=== PATIENT | male | born 1935 | race Caucasian/White ===

== ENCOUNTER 2022-05-23 07:25 | Inpatient (IN) ==
[2022-05-23] MEDS ORDERED: dexAMETHasone**PF** 10 MG/ML VIAL IV ONE (07:53)
[2022-05-23] MEDS ORDERED: SODIUM CHLORIDE 0.9% 1000ML 1,000 ML IV ONE (07:53)
[2022-05-23] MEDS ORDERED: ALBUT/IPRATROP 3MG/0.5MG NEB 3 ML VIAL NEB ONE (07:53)
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
[2022-05-23 08:48] LABS: Basophils # (auto) 0.03 K/uL (0-0.2); Basophils % (auto) 0.3 %; Eosinophils # (auto) 0.02 K/uL (0-0.50); Eosinophils % (auto) 0.2 %; Hematocrit (blood only) 38.2 % (40.1-51.0); Hemoglobin 13.3 g/dl (14.0-18.0); Immature Granulocytes # (auto) 0.06 K/uL (0.00-0.02); Immature Granulocytes % (auto) 0.6 %; Lymphocytes # (auto) 0.66 K/uL (1.2-3.4); Lymphocytes % (auto) 6.2 %; Mean Corpuscular Hemoglobin 32.4 pg (25.0-34.0); Mean Corpuscular Hgb Conc 34.8 g/dL (32.0-36.0); Mean Corpuscular Volume 93.2 fL (80.0-100.0); Mean Platelet Volume 9.5 fL (9.4-12.4); Monocytes # (auto) 0.77 K/uL (0.24-0.82); Monocytes % (auto) 7.2 %; Neutrophils # (auto) 9.19 K/uL (1.4-6.5); Neutrophils % (auto) 85.5 %; Platelet Count 235 K/uL (130-400); RDW Coefficient of Variation 12.9 % (11.5-14.5); RDW Standard Deviation 44.2 fL (36.4-46.3); White Blood Count 10.73 K/ul (4.8-10.8)
--- NOTE | 2022-05-23 08:54 | XRay Report ---
XR chest 1V portable HISTORY: Sepsis COMPARISON: Chest 04/26/2012. FINDINGS: Mild interstitial thickening again noted the lung bases. This is likely chronic. No new foc al lung consolidations to suggest a pneumonia. No evidence for pulmonary edema. The heart is normal i n size. The lungs are hyperexpanded with mild apical predominant emphysematous changes. IMPRESSION: No significant change compared to the prior study. No acute process. Emphysema again noted. ACT 112: Negative or not required by law. Electronically signed by: Joce Aparicio M.D. 05/23/2022 8:53 AM
[2022-05-23 09:12] LABS: BUN Creatinine Ratio 19.7 (10-20); Bilirubin,Total 0.6 mg/dl (0.2-1.0); Calcium 9.3 mg/dl (8.5-10.1); Creatinine Clr Calc Pharmacy 41.9 ml/min; Est GFR (African American) 59.7 ml/min; Est GFR (Non-African American) 51.5 ml/min; Magnesium 1.5 mg/dl (1.7-2.4); Potassium 3.4 mmol/L (3.5-5.1); Total Protein 6.9 gm/dl (6.0-8.3)
[2022-05-23 09:17] LABS: Troponin I High Sensitivity 8.5 pg/ml (0-20)
[2022-05-23 09:30] LABS: Influenza A virus by PCR Negative (Neg); Influenza B virus by PCR Negative (Neg); RSV by PCR Negative (Neg); SARS CoV2 RNA(COVID-19) Ceph NEGATIVE (Negative)
[2022-05-23] MEDS ORDERED: MAGNESIUM SULFATE / D5W 1 GM/100 ML BAG IV STA (10:23)
[2022-05-23] MEDS ORDERED: cefTRIAXone SODIUM 2,000 MG/70 ML BAG IV STA (10:23)
[2022-05-23] MEDS ORDERED: DOXYCYCLINE HYCLATE 100 MG in DEXTROSE 5% 100 ML IV STA (10:23)
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
[2022-05-23] MEDS: POTASSIUM CHLORIDE CRTAB 20 MEQ TABCR PO SCH ×2 (12:16→22:44)
[2022-05-23] MEDS ORDERED: GLUCOSE 10 TAB/TUBE PO PRN (14:20)
[2022-05-23] MEDS ORDERED: POLYETHYLENE (MIRALAX) 17 GM PACK PO PRN (14:20)
[2022-05-23] MEDS ORDERED: ACETAMINOPHEN 325 MG TAB PO PRN (14:20)
[2022-05-23] MEDS ORDERED: DEXTROSE 50% 50 ML SYRINGE IV PRN (14:20)
[2022-05-23] MEDS ORDERED: CARBOHYDRATES FOR HYPOGLYCEMIA PO PRN (14:20)
[2022-05-23] MEDS ORDERED: ALBUT/IPRATROP 3MG/0.5MG NEB 3 ML VIAL NEB PRN (14:20)
[2022-05-23] MEDS ORDERED: MAGNESIUM SULFATE / D5W 1 GM/100 ML BAG IV ONE (14:20)
[2022-05-23] MEDS ORDERED: GLUCAGON FOR INJ 1 MG VIAL SQ PRN (14:20)
[2022-05-23] MEDS ORDERED: GLUCOSE 40% GEL 15 GM TUBE PO PRN (14:20)
--- NOTE | 2022-05-23 15:12 | Electrocardiogram Report ---
Test Reason : Blood Pressure : / mmHG Vent. Rate : 082 BPM Atrial Rate : 082 BPM P-R Int : 170 ms QRS Dur : 106 ms QT Int : 392 ms P-R-T Axes : 080 -69 081 degrees QTc Int : 457 ms Normal sinus rhythm with sinus arrhythmia Left anterior fascicular block Pulmonary disease pattern Incomplete right bundle branch block Abnormal ECG When compared with ECG of 11-JUN-2008 04:47, T wave amplitude has decreased in Anterior leads Confirmed by Bradford Lyons ([id number]) on 05/23/2022 3:12:05 PM Referred By: REFERRED SELF Confirmed By:Bradford Lyons
[2022-05-23] MEDS: INSULIN ASPART PER UNIT SC SCH ×3 (15:56→21:00)
[2022-05-23] MEDS: MAGNESIUM OXIDE 400 MG TAB PO SCH (20:30)
[2022-05-23] MEDS: ENOXAPARIN INJ 30 MG/0.3 ML SYR SQ SCH (20:30)
[2022-05-23] MEDS: DOXYCYCLINE HYCLATE 100 MG CAP PO SCH (20:30)
[2022-05-23] MEDS: THEOPHYLLINE 300MG EXTENDED REL TAB PO SCH (20:30)
[2022-05-23] MEDS: LANTUS PER UNIT CHARGE SQ SCH (21:02)
[2022-05-24 07:54] LABS: Estimated Average Glucose 131 mg/dl; Hemoglobin A1C 6.2 % (4.5-5.6)
[2022-05-24] MEDS: THEOPHYLLINE 300MG EXTENDED REL TAB PO SCH ×3 (08:39→20:40)
[2022-05-24] MEDS: SIMVASTATIN 20 MG TAB PO SCH (08:40)
[2022-05-24] MEDS: CHLORTHALIDONE 25 MG TAB PO SCH (08:40)
[2022-05-24] MEDS: UMECLIDINIUM BROMIDE 62.5MCG/BLISTER 7 PUFFS/INHALER INH SCH (08:40)
[2022-05-24] MEDS: ASPIRIN 81 MG ECTAB PO SCH (08:40)
[2022-05-24] MEDS: MAGNESIUM OXIDE 400 MG TAB PO SCH ×2 (08:41→20:40)
[2022-05-24] MEDS: FLUTICASONE/VILANTEROL 200/25MCG 14 PUFFS/INHALER INH SCH (08:41)
[2022-05-24] MEDS: POTASSIUM CHLORIDE CRTAB 20 MEQ TABCR PO SCH (08:44)
[2022-05-24] MEDS: INSULIN ASPART PER UNIT SC SCH ×4 (08:45→20:41)
[2022-05-24] MEDS: LANTUS PER UNIT CHARGE SQ SCH ×2 (08:46→20:41)
[2022-05-24] MEDS: DOXYCYCLINE HYCLATE 100 MG CAP PO SCH ×2 (08:54→21:17)
[2022-05-24] MEDS ORDERED: methylPREDNISolone 40 MG in SYRINGE 0 ML IV SCH (09:00)
--- NOTE | 2022-05-24 14:38 | Hospitalist Progress Note ---
Date of Service May 24, 2022 Assessment & Plan (1) Acute respiratory failure with hypoxia: Plan: Acute hypoxic respiratory failure 2/2 acute on chronic moderate persistent asthma Patient's with 7 days of symptoms, patient with URI symptoms of 3 days followed by worsening wheezing and clear/white sputum production ? Emphysema/asthma overlap. CXR shows emphysematous change, patient reports he has been worked up for COPD before but is told he does not have this. He has no history of tobacco use, and denies chemical/pulmonary exposure while in the serv ice Endorses long history of asthma on theophylline/tiotropium/albuterol as needed. Last hospitalization 1 to 2 years ago. 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 Recommend follow-up PFTs as outpatient once improved. Patient reports he thinks he is scheduled for these in December Incentive spirometer, flutter valve ER dexamethasone converted to methylprednisolone 40 daily No home oxygen requirement, currently 96 with no shortness of breath on 2L COVID/flu/RSV negative Continue Doxy for potential obstructive disease exacerbation overlap Continue home Spiriva, Symbicort, Theophylline, and Duonebs q2 prn - Noted improvement 05/24, wean O2 as able to maintain sat >90% (2) Prediabetes: Plan: A1c was 6.2%. Admitting glucose 144 Will admit on weight-based basal/bolus. Likely to increase in setting of steroid use Basal 6 units twice daily, CF 65, ratio 21 (3) Pulmonary emphysema: Plan: - Recommend outpatient PFTs in 4-6 weeks following acute illness (4) Hyperlipidemia: Plan: Hyperlipidemia Continue simvastatin daily (5) Hypertension: Plan: Hypertension Continue chlorthalidone daily Continue daily aspirin Blood pressure adequately controlled on assessment (6) History of prostate cancer: Plan: Prostate cancer Prostate cancer 2008 with Shireen 6 adenocarcinoma, received radiation therapy/seeds. 2019 bone scan did not show metastatic disease. Follows with urology, did not tolerate Dagar elects was considered for hormone therapy but does not require at this Patient reports he follows with Dr. Khan and is currently doing well, has not needed hormonal therapy or LUTS/alpha-sofía treatment No urinary symptoms, no retention per patient Continue outpatient follow-up, trend BMP daily Plan Continue interventions as outlined above. Wean O2 as able to keep sats >90%. Transition to oral Prednisone to start tomorrow AM (05/25). If able to weaned off O2, would obtain 2-step and consider dc home tomorrow. Plan d/w Dr. Gregorio. Admission and Anticipated Discharge Date Admission Date: May 23, 2022 Subjective Patient seen on daily rounds this morning. He is resting comfortably in bed. He reports that his breathing has improved from yesterday but still continues to have mild productive cough with yellow sputum. Denies cp. Review of Systems Review of Systems: All systems reviewed and are unremarkable except as noted in HPI and below. Denies fever, chills, fatigue, headache, nasal congestion, sore throat, chest pain, palpitations, orthopnea, PND, abdominal pain, n/v/d, constipation, dysuria, hematuria, frequency, back pain, joint pain or swelling, easy bruising or bleeding, skin lesions or rashes. Physical Exam Physical Exam: GENERAL: 86 yo Well-developed, well-nourished elderly WM. NAD. LUNGS: Fair air exchange. Scattered end expiratory wheezes appreciated throughout. CARDIOVASCULAR: Regular rate and rhythm. ABDOMEN: Soft, non-tender and non-distended. BS normoactive x 4 quad. EXTREMITIES: No edema. Non-tender. Peripheral pulses +2/4. NEUROLOGIC: A&O x3. PSYCHIATRIC: Cooperative. Appropriate mood and affect. SKIN: Warm, dry, intact. No rashes or lesions. Results & Data Results & Data ([facility]) Vital Signs (Past 12 Hours) Vital Signs Temp Pulse Resp BP Pulse Ox O2 Del Method O2 Flow Rate 05/24/22 09:30 Nasal Cannula 2 05/24/22 07:16 36.7 C 82 16 131/69 96 Nasal Cannula 2 Laboratory Results 05/23/22 08:20 05/23/22 08:20 PG Care Time/CCT Total # of Minutes Spent Total Time Spent with Patient: Total time spent is greater than 50% in coordination of care (as documented) at patient's floor/unit and/or counseling patient: Coding Level of Care Code 72734 Subseq Hosp Care Lvl 2 Diagnoses Acute respiratory failure with hypoxia J96.01 Prediabetes R73.03 Pulmonary emphysema J43.9 Hyperlipidemia E78.5 Hypertension I10 History of prostate cancer Z85.46
[2022-05-24] MEDS: ENOXAPARIN INJ 30 MG/0.3 ML SYR SQ SCH (20:39)
[2022-05-25] MEDS: FLUTICASONE/VILANTEROL 200/25MCG 14 PUFFS/INHALER INH SCH (08:31)
[2022-05-25] MEDS: UMECLIDINIUM BROMIDE 62.5MCG/BLISTER 7 PUFFS/INHALER INH SCH (08:31)
[2022-05-25] MEDS: ASPIRIN 81 MG ECTAB PO SCH (08:32)
[2022-05-25] MEDS: CHLORTHALIDONE 25 MG TAB PO SCH (08:32)
[2022-05-25] MEDS: MAGNESIUM OXIDE 400 MG TAB PO SCH (08:32)
[2022-05-25] MEDS: THEOPHYLLINE 300MG EXTENDED REL TAB PO SCH ×2 (08:32→14:05)
[2022-05-25] MEDS: SIMVASTATIN 20 MG TAB PO SCH (08:32)
[2022-05-25] MEDS ORDERED: predniSONE 20 MG TAB PO SCH (09:00)
[2022-05-25] MEDS: LANTUS PER UNIT CHARGE SQ SCH (09:18)
[2022-05-25] MEDS: INSULIN ASPART PER UNIT SC SCH ×2 (09:18→13:21)
[2022-05-25] MEDS: DOXYCYCLINE HYCLATE 100 MG CAP PO SCH (09:24)
--- NOTE | 2022-05-25 11:56 | Discharge Summary ---
Date of Service May 25, 2022 Admission HPI Per Admitting Provider Neri Deal is a 86-year-old male with a past medical history of prediabetes, prostate cancer, LUTS, emphysema, hyperlipidemia, hypertension who presents with shortness of breath. ER Review: COVID, flu, RSV negative on admission. Lactate is normal. Glucose 144. Potassium 3.4, sodium 133, creatinine baseline is not available for review, 1.27 with age-adjusted clearance of 41.9 on admission. Longstanding COPD, 2 to 3 days of worsening mild cough which has become thicker and more productive. No chest pain, chest pressure, palpitations, abdominal pain, nausea/vomiting/diarrhea/constipation. Is more easily fatigued with exertion. Symptoms improved at home with albuterol which she has been using Has a history of pneumonia and asthma exacerbations, patient notes his is sick at home as well CXRR: No acute change compared to prior, emphysema noted. No pulmonary edema. No leukocytosis Pro-Isaiah normal Troponin normal Stress echo 01/2020: Negative for evidence of ischemia by echo and ECG at 88% MPH R. Study terminated due to mild hypertensive blood pressure response. EF 60- 65%, no regional wall motion abnormalities, mild mitral regurg, mildly elevated RVSP. EKG on admission: NSR with sinus arrhythmia. Incomplete RBBB. QTc 457. Left axis deviation. No territorial ST segment changes or new T wave inversions compared to 06/11/2008 [facility] chart review: COPD/Asthma overlap. Essential hypertension Impaired fasting glucose Moderate persistent asthma, uncomplicated History of multiple lung nodules Home medications: Albuterol, potassium chloride, to Tropium 2 puffs daily for asthma, chlorthalidone 25 mg daily, simvastatin 40 mg daily, theophylline 300 mg slow acting daily for asthma [facility]. Aspirin 81 mg daily patient supplied. Creatinine from 08/2021 1.0, glucose 102, potassium 4.1 Per patient: Reports he has had about 3 to 4 days of cough with more white/thick white sputum production. Notes his had a URI which has resolved, she had symptoms beginning about 7 days ago. He reports he has a cough, and just felt globally weak that he slumped down to the floor today. Reports he did not pass out and feel lightheaded/dizzy and did not lose confidence stenosed, just felt so tired and fatigued that he could not walk. Denies any chest pain/chest pressure. Reports he has some wheezing intermittently with chronic asthma, has had increased wheezing for the last 3 days for which she has been taking his albuterol 3-4 times a day which does help his shortness of breath and wheezing. He reports that it has been noted on his chart that he has COPD by the [facility], but on follow-up assessment was told that he has asthma and does not have COPD. Emphysematous change is noted on chest x-ray. He denies any history of tobacco use including current/former/in the service, and denies toxic exposure while in the service. Notes that COPD is erroneous, but does endorse asthma. PFTs are not available for review. He reports his theophylline, daily inhaler, and albuterol as needed usually work well for him. Last hospitalization for asthma was 1 to 2 years ago and generally does not have nighttime awakenings ports that he is sensitive to pneumonia, last treated a year ago. Normally gets his care at the [facility], sometimes follows up with Dr. Forte. He denies fever, chills, night sweats, abdominal pain, nausea/vomiting/diarrhea/constipation, dysuria/urinary symptoms. Medical History: Reviewed Medications: Reviewed Surgical History: Reviewed Allergies: Reviewed Social History: No tobacco/alcohol use Code Status: DNR/DNI Principal Diagnosis 1. Acute hypoxic respiratory failure 2. Asthma exacerbation 3. URI Discharge Exam GENERAL: 86 yo Well-developed, well-nourished elderly WM. NAD. LUNGS: Nonlabored. Fair air exchange. Only few isolated end expiratory wheezes, otherwise mostly clear. CARDIOVASCULAR: Regular rate and rhythm. ABDOMEN: Soft, non-tender and non-distended. BS normoactive x 4 quad. EXTREMITIES: No edema. Non-tender. Peripheral pulses +2/4. NEUROLOGIC: A&O x3. PSYCHIATRIC: Cooperative. Appropriate mood and affect. SKIN: Warm, dry, intact. No rashes or lesions. Discharge Data Allergies Allergy/AdvReac Type Severity Reaction Status Date / Time No Known Allergies Allergy Unknown Verified 02/03/22 09:20 Consultations 05/23/22 10:39 ED Decision to Admit Stat Ordered Studies 05/23/22 08:20 05/23/22 08:20 Chest X-Ray 05/23/22 07:54 XR chest 1V portable HISTORY: Sepsis COMPARISON: Chest 04/26/2012. FINDINGS: Mild interstitial thickening again noted the lung bases. This is likely chronic. No new focal lung consolidations to suggest a pneumonia. No evidence for pulmonary edema. The heart is normal in size. The lungs are hyperexpanded with mild apical predominant emphysematous changes. IMPRESSION: No significant change compared to the prior study. No acute process. Emphysema again noted. ACT 112: Negative or not required by law. Electronically signed by: Joce Aparicio M.D. 05/23/2022 8:53 AM Hospital Course (1) Acute respiratory failure with hypoxia: Acute hypoxic respiratory failure 2/2 acute on chronic moderate persistent asthma Patient's with 7 days of symptoms, patient with URI symptoms of 3 days followed by worsening wheezing and clear/white sputum production ? Emphysema/asthma overlap. CXR shows emphysematous change, patient reports he has been worked up for COPD before but is told he does not have this. He has no history of tobacco use, and denies chemical/pulmonary exposure while in the service Endorses long history of asthma on theophylline/tiotropium/albuterol as needed. Last hospitalization 1 to 2 years ago. 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 Recommend follow-up PFTs as outpatient once improved. Patient reports he thinks he is scheduled for these in December Incentive spirometer, flutter valve ER dexamethasone converted to methylprednisolone 40 daily No home oxygen requirement, currently 96 with no shortness of breath on 2L COVID/flu/RSV negative Continue Doxy for potential obstructive disease exacerbation overlap Continue home Spiriva, Symbicort, Theophylline, and Duonebs q2 prn - Pt has greatly improved both subjectively and objectively, now off O2 - Walking around in room w/o dyspnea, has been transitioned to oral Prednisone 05/25 - Plan for d/c home on Doxycycline 100mg BID x 4 more days and Prednisone taper (2) Prediabetes: A1c was 6.2%. Admitting glucose 144 Will admit on weight-based basal/bolus. Likely to increase in setting of steroid use Basal 6 units twice daily, CF 65, ratio 21 - No need to continue insulin as outpatient (3) Pulmonary emphysema: - Recommend outpatient PFTs in 4-6 weeks following acute illness (4) Hyperlipidemia: Hyperlipidemia Continue simvastatin daily (5) Hypertension: Hypertension Continue chlorthalidone daily Continue daily aspirin Blood pressure adequately controlled on assessment (6) History of prostate cancer: Prostate cancer Prostate cancer 2008 with Shireen 6 adenocarcinoma, received radiation therapy/seeds. 2019 bone scan did not show metastatic disease. Follows with urology, did not tolerate Dagar elects was considered for hormone therapy but does not require at this Patient reports he follows with Dr. Khan and is currently doing well, has not needed hormonal therapy or LUTS/alpha-sofía treatment No urinary symptoms, no retention per patient Plan Patient weaned off O2, ambulatory pulse ox completed by RN and pt did not drop below 88% with activity. He is medically and hemodynamically stable for discharge home today to complete course of Doxy and Prednisone taper. Follow up with PCP. Advise repeat PFTs in 4-6 weeks. Above plan of care has been d/w Dr. Ant Gregorio who has also seen and evaluated this patient and agrees with aforementioned. Total Time Total Time Spent Total Time Spent (In Minutes): >30 minutes Discharge Plan Discharge Items Patient Disposition: Home - Self-Care Reason For Visit: AHRF 2/2 URI ASTHMA EXACERBATION Discharge Diagnosis: viral upper respiratory infection with asthma flare Activity: Resume your previous activity Non-emergency contact: Primary Care Provider Call non-emergency contact if: you have any medication questions Follow-up/Referrals: Hector Forte MD [Primary Care Provider] - 05/30/22 1:30 pm Diet: Carb Consistent or DM2 Addtl Attending Provider Instructions: You were hospitalized due to shortness of breath, cough, and low oxygen levels which was felt to be due to a viral upper respiratory infection that caused a flare in your asthma. You were treated with breathing treatments, oxygen, steroids, and antibiotics. You will be continued on Doxycycline 100mg twice a day for the next 4 days (next dose is due this evening 12/14 before bed). Be sure to take the Doxycycline AT LEAST 60 minutes before laying down flat. Do not take with milk or calcium products. Complete the Prednisone taper as directed. Take in the morning with food. You can resume your routine inhalers as prescribed. You are being prescribed Magnesium supplementation as your magnesium was low during your hospital stay. It is recommended that you follow up with your family doctor within 1 week of discharge. You are going to need updated pulmonary function tests in about 4-6 weeks. This can be arranged by your primary care doctor. This is due to having a finding of emphysema on your chest xray. If you have any questions or concerns after you are discharged, feel free to contact the nonemergency number listed on your discharge paperwork. In the event of a medical emergency, call 911. Pending Studies at Discharge: No Stand-Alone Forms: My [facility], Smoking Cessation Medications and DC Order Prescriptions: New doxycycline hyclate 100 mg Capsule 100 mg PO BID Qty: 9 0RF magnesium oxide 400 mg (241.3 mg magnesium) Tablet 400 mg PO BID Qty: 60 0RF prednisone 10 mg tablet 10 mg PO DAILY Qty: 20 0RF Rx Instructions: 4 tabs po daily x 2 days, 3 tabs po daily x 2 days, 2 tabs po daily x 2 days, 1 tab po daily x 2 days then stop Continued aspirin 81 mg tablet,delayed release (DR/EC) 81 mg PO QAM theophylline 300 mg tablet 300 mg PO TID budesonide-formoterol 160-4.5 mcg/actuation HFA aerosol inhaler 2 puffs INH BID albuterol sulfate 90 mcg/actuation HFA aerosol inhaler 2 puffs INH Q4H PRN (Reason: SHORT OF BREATH) tiotropium bromide 18 mcg capsule, w/inhalation device 1 cap INH QAM simvastatin 40 mg tablet See Rx Instructions PO DAILY Label Comments: HS Rx Instructions: 1/2 tab daily PO daily; chlorthalidone 25 mg tablet 25 mg PO QAM Discharge Orders: Discharge Order (Routine); Ordered 05/25/22 Ordered By: Jennifer Mack/Other Patient Handouts: A1C Admission Data Admit Date/Time: 05/23/22 11:30 Attending Provider: Ant Gregorio Admit Provider: Zack Dooley Primary Care Provider: Hector Forte Other Providers: Zack Dooley ; [facility] Other Interventions: Discharge Summary Assessment (RN) Last Done: 05/25/22 13:40 Supervising Physician Co-Signing Physician Notes I supervised Jennifer Mendez PA-C on the care of this patient. I interviewed and examined the patient independently of her. The plan is as written in her note except for any following changes/exceptions: None 86yo M w/ COPD/asthma/overlap syndrome. In with shortness of breath, now improved with treatment. Likely viral in origin as family was also sick. Feeling much better now. Ready for discharge. Coding Level of Care Code D/C DAY MANAGEMENT >30 MINS Diagnoses Acute respiratory failure with hypoxia J96.01 Prediabetes R73.03 Pulmonary emphysema J43.9 Hyperlipidemia E78.5 Hypertension I10 History of prostate cancer Z85.46
[2022-05-26 17:37] LABS: A calco-baum cmplx NotReported Not Detected (NotDetected); Bact fragilis Not Reported Not Detected (NotDetected); C auris Not Reported Not Detected (NotDetected); Calbicans Not Reported Not Detected (NotDetected); Candida glabrata Not Reported Not Detected (NotDetected); Candida krusei Not Reported Not Detected (NotDetected); Cneoformans/gatti Not Reported Not Detected (NotDetected); Cparapsilosis Not Reported Not Detected (NotDetected); Ctropicalis Not Reported Not Detected (NotDetected); E cloacae compx Not Reported Not Detected (NotDetected); Efaecalis Not Reported Not Detected (NotDetected); Efaecium Not Reported Not Detected (NotDetected); Enterobacterales Not Reported Not Detected (NotDetected); Escherichia coli Not Reported Not Detected (NotDetected); H influenzae Not Reported Not Detected (NotDetected); K aerogenes Not Reported Not Detected (NotDetected); Koxytoca Not Reported Not Detected (NotDetected); Kpneumoniae grp Not Reported Not Detected (NotDetected); Lmonocyt Not Reported Not Detected (NotDetected); N meningitidis Not Reported Not Detected (NotDetected); P aeruginosa Not Reported Not Detected (NotDetected); Proteus spp Not Reported Not Detected (NotDetected); Salmonella spp Not Reported Not Detected (NotDetected); Smarcescens Not Reported Not Detected (NotDetected); Staph lugdunensis Not Reported Not Detected (NotDetected); Staph spp. Not Reported Not Detected (NotDetected); Staphaureus Not Reported Not Detected (NotDetected); Staphepi Not Reported Not Detected (NotDetected); Stenmaltophilia Not Reported Not Detected (NotDetected); Strep agal(GrpB) Not Reported Not Detected (NotDetected); Strep pneum Not Reported Not Detected (NotDetected); Strep pyog (GrpA) Not Reported Not Detected (NotDetected); Strep spp Not Reported Not Detected (NotDetected)
== END 2022-05-25 15:29 | disposition home or self-care (01) | DRG 202 ==
LOC: ED 07:25 → EDINP 11:30 → SUATTDRO 11:30 → 3W 16:41
DX: J06.9 Acute upper respiratory infection, unspecified; Z85.46 Personal history of malignant neoplasm of prostate; E83.42 Hypomagnesemia; Z80.42 Family history of malignant neoplasm of prostate; Z79.899 Other long term (current) drug therapy; Z86.16 Personal history of COVID-19; I10 Essential (primary) hypertension; J96.01 Acute respiratory failure with hypoxia; Z83.3 Family history of diabetes mellitus; J45.41 Moderate persistent asthma with (acute) exacerbation; B97.89 Other viral agents as the cause of diseases classified elsewhere; Z66 Do not resuscitate; N40.0 Benign prostatic hyperplasia without lower urinary tract symptoms; R73.03 Prediabetes; Z79.82 Long term (current) use of aspirin; Z20.822 Contact with and (suspected) exposure to COVID-19; J43.9 Emphysema, unspecified; Z82.49 Family history of ischemic heart disease and other diseases of the circulatory system; E78.5 Hyperlipidemia, unspecified